=== PATIENT | female | born 1950 | race Caucasian/White ===

== ENCOUNTER 2017-05-15 12:30 | Outpatient (CLI) | payer BC | END 2017-05-15 12:31 | disposition home or self-care (01) | LOC: BICRAD 12:30 | PROVIDERS: ATTEND Family Medicine | DX: R68.89 Other general symptoms and signs (principal); J84.9 Interstitial pulmonary disease, unspecified; I70.0 Atherosclerosis of aorta | CPT/HCPCS: 71046 ==

== ENCOUNTER 2018-01-02 10:05 | Outpatient (CLI) | payer MEDICARE, BC | END 2018-01-02 10:06 | disposition home or self-care (01) | LOC: BICMAMMO 10:05 | PROVIDERS: ATTEND Family Medicine | DX: Z12.31 Encounter for screening mammogram for malignant neoplasm of breast (principal); Z85.828 Personal history of other malignant neoplasm of skin; Z80.3 Family history of malignant neoplasm of breast | CPT/HCPCS: 77063; 77067 ==

== ENCOUNTER 2018-08-10 08:52 | Outpatient (CLI) | payer BC, MEDICARE ==
--- NOTE | 2018-08-10 09:51 | CT ---
FCT thorax noncontrast: (Pulmonary low dose screening scan) 08/10/2018 HISTORY: 68-year-old female with 51 years of smoking. FINDINGS: Located near the anterior pleural surface, there is a left upper lobe noncalcified stellate nodule. B ecause of the very irregular shape, it is difficult to obtain precise measurements. It is approximate ly 6 x 3 x 4 mm. It is visualized on the 1.25 mm thin slice sequence. It is more difficult to visuali ze on the 5 mm axial images, and therefore it is uncertain whether it was present or not on the prior CT of 03/23/2010. (Current images 59 of 251, series 2; 133 of 199, series 602; 52 of 139, series 601 ). This could be a tiny pulmonary scar or primary neoplasm. No other suspicious pulmonary nodules. No mediastinal lymphadenopathy. No infiltrate, pleural effusion, or pneumothorax. No thoracic aortic an eurysm or cardiomegaly. There is a right adrenal nodule, and a smaller left adrenal nodule, which hav e been stable since 2009, consistent with benign adrenal adenomas. IMPRESSION: 1.) Lung RADS category 3 (probably benign, 1-2% chance of malignancy) 2) tiny stellate left upper lobe pulmonary nodule. 3) recommend 6 month follow-up low dose screening CT. 4) incidental finding of bilateral benign adrenal adenomas.
== END 2018-08-10 08:53 | disposition home or self-care (01) ==
LOC: CT 08:52
PROVIDERS: ATTEND Family Medicine
DX: F17.210 Nicotine dependence, cigarettes, uncomplicated (principal); R91.1 Solitary pulmonary nodule
CPT/HCPCS: G0297

== ENCOUNTER 2018-12-18 10:19 | Outpatient (CLI) | payer BC, MEDICARE ==
--- NOTE | 2018-12-22 06:47 | MMO ---
Bilateral MAMMO Bilat Screen [facility]. CLINICAL HISTORY: Patient is 68 years old and is seen for screening. The patient has the following family history of breast cancer: maternal aunt, malignant (generic), x2. The patient has a history of Skin cancer at age 53. VIEWS: The views performed were: bilateral craniocaudal with tomosynthesis and bilateral mediolateral oblique with tomosynthesis. FILMS COMPARED: The present examination has been compared to prior imaging studies performed at [facility] on 01/19/2015, 12/15/2015, 01/27/2017 and 01/02/2018. MAMMOGRAM FINDINGS: There are scattered fibroglandular densities. There is a stable focal asymmetry seen in the outer region of the left breast. There are no suspicious masses, suspicious calcifications, or new areas of architectural distortion. IMPRESSION: THERE IS NO MAMMOGRAPHIC EVIDENCE OF MALIGNANCY. A ROUTINE FOLLOW-UP MAMMOGRAM IN 1 YEAR IS RECOMMENDED. THE RESULTS OF THIS EXAM WERE SENT TO THE PATIENT. ACR BI-RADS Category 2 - Benign finding MAMMOGRAPHY NOTE: 1. A negative mammogram report should not delay a biopsy if a dominant of clinically suspicious mass is present. 2. Approximately 10% to 15% of breast cancers are not detected by mammography. 3. Adenosis and dense breasts may obscure an underlying neoplasm. Reported by: ERNESTO TOM MD Electonically Signed: [id number]
== END 2018-12-18 10:20 | disposition home or self-care (01) ==
LOC: BICMAMMO 10:19
PROVIDERS: ATTEND Family Medicine
DX: Z12.31 Encounter for screening mammogram for malignant neoplasm of breast (principal); Z80.3 Family history of malignant neoplasm of breast; Z85.828 Personal history of other malignant neoplasm of skin
CPT/HCPCS: 77063; 77067

== ENCOUNTER 2019-02-09 13:53 | Outpatient (CLI) | payer BC, MEDICARE ==
[~2019-02-09 13:53] MED LIST: ISOVUE-370 76%-LOCM 1 ML ONE
--- NOTE | 2019-02-09 15:23 | CT ---
CT CHEST WITH CONTRAST CLINICAL INDICATION: Pulmonary nodule. Follow-up evaluation. COMPARISON: 08/10/2018 FINDINGS: Aorta: Vascular calcifications are seen. Thoracic aorta is normal in caliber without evidence of an a ortic dissection. Coronary artery calcifications are also seen. Lungs: Previously noted curvilinear and slight nodular density within the anterior aspect left upper lobe (image 15, series 3) is again seen and unchanged from prior exam. No additional discrete pulmonary nodule or mass is seen. No pleural effusion is identified. Mediastinum: There is no evidence of lymphadenopathy. Thyroid gland: Artifact through this region, but no gross abnormality is seen. Osseous structures: Degenerative changes are seen in the spine. There are postsurgical changes involv ing the lower cervical spine Chest wall: No abnormality visualized. Upper abdomen: There are bilateral adrenal nodules which are stable in appearance and size compared t o prior study on 03/23/2010, and these nodules demonstrated attenuation coefficients on recent CT pulmonary lung scan on 08/10/2018 suggestive of adrenal adenomas. IMPRESSION: 1. Curvilinear slightly stellate appearing nodular density in the anterior aspect left upper lobe is stable when compared to prior exam. As cryptogenic represent focal area of scarring, but continued 6 month follow-up evaluation is recommended. No additional pulmonary nodule is seen.
== END 2019-02-09 13:54 | disposition home or self-care (01) ==
LOC: BICCT 13:53
PROVIDERS: ATTEND Family Medicine
DX: R91.1 Solitary pulmonary nodule (principal); Z87.891 Personal history of nicotine dependence
CPT/HCPCS: 71260; 82565; Q9966

== ENCOUNTER 2019-05-28 13:33 | Outpatient (CLI) | payer BC, MEDICARE ==
--- NOTE | 2019-05-28 15:00 | ULT ---
ULTRASOUND RENAL BILATERAL STANDARD: Date: 05/28/2019 HISTORY: Chronic kidney disease, Stage III. COMPARISON: None. FINDINGS: Real-time Hammer scale and color evaluation of the kidneys and urinary bladder performed. Right kidney measures 9.9 x 5.1 x 5.4 cm. Left kidney measures 9.3 x 5.3 x 6.7 cm. Urinary bladder vo lume is unremarkable. No renal mass, hydronephrosis, or abnormal calcifications are appreciated. IMPRESSION: Normal exam. POS: OFF
== END 2019-05-28 13:34 | disposition home or self-care (01) ==
LOC: BICULT 13:33
PROVIDERS: ATTEND Internal Medicine Nephrology
DX: N18.3 Chronic kidney disease, stage 3 (moderate) (principal)
CPT/HCPCS: 76770

== ENCOUNTER 2020-09-13 05:28 | Inpatient (IN) | payer MEDICARE, BC ==
[2020-09-13] MEDS ORDERED: Nitroglycerin 0.4 MG TAB 1 EACH ONE (05:36)
[2020-09-13 05:53] LABS: #Basophils 0.1 thou/uL (0.0-0.2); #Eosinphils 0.6 thou/uL (0.0-0.7); #Lymphocytes 3.1 thou/uL (1.20-3.40); #Monocytes 0.6 thou/uL (0.11-0.59); #Neutrophils 6.2 thou/uL (1.40-6.50); %Basophils 0.8 % (0.0-1.0); %Eosinophils 5.2 % (0.0-10.0); %Lymphocytes 29.1 % (21.0-51.0); %Monocytes 5.9 % (0.0-10.0); Hemoglobin 13.3 g/dL (12.0-16.0); Mean Corpuscular HGB CONC 32.2 g/dL (32.0-36.0); Mean Corpuscular Hemoglobin 29.6 pg (27.0-31.0); Mean Corpuscular Volume 91.9 fL (78.0-98.0); Mean Platelet Volume 7.6 fL (7.4-10.4); Platelet Count 348 thou/uL (130-400); RBC Distribution Width 12.5 % (11.5-14.5); Red Blood Cell (RBC) Count 4.48 mill/uL (4.20-5.40); White Blood Cell (WBC) Count 10.6 thou/uL (4.8-10.8)
[2020-09-13 06:26] LABS: ALT (SGPT) 21 U/L (8-55); AST (SGOT) 20 U/L (5-34); Albumin 4.2 g/dL (3.4-4.8); Alkaline Phosphatase 62 U/L (40-110); Anion Gap 15 mmol/L (10-20); BUN (Urea Nitrogen) 18 mg/dL (9.8-20.1); Bilirubin, Total 0.7 mg/dL (0.2-1.2); Calc. Creatinine Clearance 0 mL/min (70-130); Calcium 9.8 mg/dL (7.8-10.44); Carbon Dioxide 22 mmol/L (23-31); Chloride 105 mmol/L (98-107); Globulin 3.5 g/dL (2.4-3.5); Glucose 159 mg/dL (80-115); Potassium 3.9 mmol/L (3.5-5.1); Protein, Total 7.7 g/dL (5.8-8.1); Sodium 138 mmol/L (136-145)
[2020-09-13 07:09] LABS: SARS-CoV-2 NAA Rapid Test Not Detected (NotDetected)
[2020-09-13 07:19] LABS: CKMB 1.5 ng/mL (0-6.6)
[2020-09-13] MEDS ORDERED: Furosemide 40 MG/4 ML VIAL ONE (07:21)
[2020-09-13] MEDS ORDERED: Senokot S 8.6-50 MG TAB PO PRN (08:56)
[2020-09-13] MEDS ORDERED: HYDROcodone/Acetaminophen 5/325 mg Tablet PO PRN (08:56)
[2020-09-13] MEDS ORDERED: Calcium Carbonate 500 MG ChewTAB PO PRN (08:56)
[2020-09-13] MEDS ORDERED: Acetaminophen 325 MG TAB PO PRN (08:56)
[2020-09-13 08:57] LABS: Troponin I 0.155 ng/mL (< 0.028)
[2020-09-13] MEDS ORDERED: Enoxaparin Sodium 80 MG/0.8 ML SYRINGE SC SCH (09:00)
[2020-09-13] MEDS ORDERED: Dextrose 5% in Water 1,000 ML IV PRN (09:01)
[2020-09-13] MEDS ORDERED: HumaLOG 300 UNITS/3 ML VIAL SC PRN (09:01)
[2020-09-13] MEDS ORDERED: hydrALAZINE 20 MG/ML VIAL SLOW IVP PRN (09:01)
[2020-09-13] MEDS ORDERED: Dextrose 50% Abboject 50 ML SYRINGE SLOW IVP PRN (09:01)
[2020-09-13] MEDS ORDERED: Iopamidol 370 76% 100 ML VIAL ONE (10:09)
[2020-09-13 11:13] VITALS: BMI 28.9
[2020-09-13] MEDS: Aspirin Chewable 81 MG TAB PO SCH (11:59)
[2020-09-13] MEDS: Famotidine 20 MG TAB PO SCH ×2 (11:59→20:51)
[2020-09-13] MEDS: Nicotine 14 MG PATCH TD SCH (12:00)
[2020-09-13 12:51] LABS: Troponin I 0.164 ng/mL (< 0.028)
[2020-09-13] MEDS ORDERED: Furosemide 20 MG/2 ML VIAL SLOW IVP SCH (17:00)
[2020-09-13] MEDS ORDERED: Carvedilol 6.25 MG TAB PO SCH (17:00)
[2020-09-13] MEDS ORDERED: Potassium Chloride 20 MEQ TAB PO SCH (17:00)
[2020-09-13] MEDS: Carvedilol 3.125 MG TAB PO SCH (17:54)
[2020-09-13] MEDS: Enoxaparin Sodium 40 MG/0.4 ML SYRINGE SC SCH (20:51)
[2020-09-13] MEDS: Doxycycline 100 MG CAP PO SCH (20:51)
[2020-09-14 05:05] LABS: #Basophils 0.1 thou/uL (0.0-0.2); #Eosinphils 0.4 thou/uL (0.0-0.7); #Lymphocytes 2.8 thou/uL (1.20-3.40); #Monocytes 0.7 thou/uL (0.11-0.59); #Neutrophils 3.1 thou/uL (1.40-6.50); %Eosinophils 5.8 % (0.0-10.0); %Monocytes 9.3 % (0.0-10.0); %Neutrophils 43.9 % (42.0-75.0); Hemoglobin 12.5 g/dL (12.0-16.0); Mean Corpuscular HGB CONC 31.6 g/dL (32.0-36.0); Mean Corpuscular Hemoglobin 29.7 pg (27.0-31.0); Mean Platelet Volume 7.9 fL (7.4-10.4); Platelet Count 323 thou/uL (130-400); RBC Distribution Width 12.6 % (11.5-14.5); Red Blood Cell (RBC) Count 4.21 mill/uL (4.20-5.40); White Blood Cell (WBC) Count 7.1 thou/uL (4.8-10.8)
[2020-09-14 05:10] LABS: Hemoglobin A1c 6.2 % (4.0-6.0)
[2020-09-14 05:13] LABS: Phosphorus 3.6 mg/dL (2.3-4.7)
[2020-09-14 05:16] LABS: Anion Gap 16 mmol/L (10-20); BUN (Urea Nitrogen) 17 mg/dL (9.8-20.1); Calc. Creatinine Clearance 53 mL/min (70-130); Calcium 9.6 mg/dL (7.8-10.44); Carbon Dioxide 24 mmol/L (23-31); Cardiac Risk 3.4 (Less than 4.5); Chloride 104 mmol/L (98-107); Cholesterol 137 mg/dl (< 200 Desired); Glucose 115 mg/dL (80-115); HDL Cholesterol 40 mg/dL (>60 Neg Risk); LDL Cholesterol, Calculated 59 mg/dL; Potassium 4.5 mmol/L (3.5-5.1); Sodium 139 mmol/L (136-145); Triglycerides 188 mg/dL (Less than 150)
[2020-09-14 05:27] LABS: CRP (Inflammatory) Less than 0.50 mg/dL (= or < 0.5); Magnesium 1.5 mg/dL (1.6-2.6)
[2020-09-14] MEDS: Enoxaparin Sodium 40 MG/0.4 ML SYRINGE SC SCH ×2 (08:12→20:44)
[2020-09-14] MEDS: Aspirin Chewable 81 MG TAB PO SCH (08:13)
[2020-09-14] MEDS: Famotidine 20 MG TAB PO SCH ×2 (08:13→20:44)
[2020-09-14] MEDS: Doxycycline 100 MG CAP PO SCH (08:13)
[2020-09-14] MEDS: Carvedilol 3.125 MG TAB PO SCH ×2 (08:13→17:47)
[2020-09-14] MEDS ORDERED: Magnesium Sulfate 4 GM in Sodium Chloride 0.9% 250 ML 250 ML IVPB SCH (08:15)
[2020-09-14] MEDS: Nicotine 14 MG PATCH TD SCH (08:27)
[2020-09-14] MEDS ORDERED: Furosemide 20 MG/2 ML VIAL SLOW IVP SCH (09:00)
[2020-09-14] MEDS ORDERED: Communication Order-Pharmacy FS SCH (09:00)
[2020-09-15] MEDS: Aspirin Chewable 81 MG TAB PO SCH (05:30)
[2020-09-15] MEDS: Famotidine 20 MG TAB PO SCH (05:30)
[2020-09-15] MEDS: Carvedilol 3.125 MG TAB PO SCH (05:31)
[2020-09-15] MEDS: Nicotine 14 MG PATCH TD SCH (05:31)
[2020-09-15 05:33] LABS: Anion Gap 12 mmol/L (10-20); BUN (Urea Nitrogen) 23 mg/dL (9.8-20.1); Calc. Creatinine Clearance 45 mL/min (70-130); Calcium 9.8 mg/dL (7.8-10.44); Carbon Dioxide 27 mmol/L (23-31); Chloride 103 mmol/L (98-107); Glucose 114 mg/dL (80-115); Magnesium 2.2 mg/dL (1.6-2.6); Potassium 4.5 mmol/L (3.5-5.1); Sodium 137 mmol/L (136-145)
[2020-09-15] MEDS ORDERED: Sodium Chloride 0.9% 1,000 ML IV SCH (06:00)
[2020-09-15] MEDS ORDERED: Lidocaine 1% (PF) 30 ML VIAL ONE (07:50)
[2020-09-15] MEDS ORDERED: Midazolam HCl 2 mg/2 ml Vial ONE (08:24)
[2020-09-15] MEDS ORDERED: Fentanyl 100 MCG/2 ML VIAL ONE (08:24)
[2020-09-15] MEDS ORDERED: Nitroglycerin 0.4 MG TAB (25 Tab Bottle) SL PRN (08:58)
[2020-09-15] MEDS ORDERED: Sodium Chloride 0.9% 200 ML IV PRN (08:58)
[2020-09-15] MEDS ORDERED: Iopamidol 370 76% 100 ML VIAL ONE (10:52)
[2020-09-15 11:38] VITALS: TEMP 97.8
[2020-09-15 12:30] VITALS: BP 110/73
[2020-09-15] MEDS ORDERED: Rosuvastatin 10 MG TAB PO SCH (21:00)
[2020-09-17] MEDS ORDERED: Furosemide 20 MG TAB PO SCH (09:00)
== END 2020-09-15 16:25 | disposition home or self-care (01) | DRG 280 ==
LOC: ERS 05:28 → 2SW 07:40 → OBSVTOIN 09-14 09:43
PROVIDERS: ADMIT Family Medicine; ATTEND Internal Medicine
PROC: 4A023N7 Measurement of Cardiac Sampling and Pressure, Left Heart, Percutaneous Approach (ICD-10-PCS; principal; 2020-09-15)
PROC: B2111ZZ Fluoroscopy of Multiple Coronary Arteries using Low Osmolar Contrast (ICD-10-PCS; 2020-09-15)
PROC: B2151ZZ Fluoroscopy of Left Heart using Low Osmolar Contrast (ICD-10-PCS; 2020-09-15)
DX: I13.0 Hypertensive heart and chronic kidney disease with heart failure and stage 1 through stage 4 chronic kidney disease, or unspecified chronic kidney disease (principal); I21.A1 Myocardial infarction type 2; J96.01 Acute respiratory failure with hypoxia; I50.23 Acute on chronic systolic (congestive) heart failure; Z20.822 Contact with and (suspected) exposure to COVID-19; I42.0 Dilated cardiomyopathy; E78.5 Hyperlipidemia, unspecified; E03.9 Hypothyroidism, unspecified; F17.210 Nicotine dependence, cigarettes, uncomplicated; F17.290 Nicotine dependence, other tobacco product, uncomplicated; E78.00 Pure hypercholesterolemia, unspecified; I25.10 Atherosclerotic heart disease of native coronary artery without angina pectoris; G47.33 Obstructive sleep apnea (adult) (pediatric); E11.22 Type 2 diabetes mellitus with diabetic chronic kidney disease; N18.30 Chronic kidney disease, stage 3 unspecified; I34.0 Nonrheumatic mitral (valve) insufficiency; E83.42 Hypomagnesemia; E87.5 Hyperkalemia; Z88.5 Allergy status to narcotic agent; Z79.82 Long term (current) use of aspirin; Z79.899 Other long term (current) drug therapy; Z90.710 Acquired absence of both cervix and uterus; Z90.49 Acquired absence of other specified parts of digestive tract; Z79.890 Hormone replacement therapy; Z79.84 Long term (current) use of oral hypoglycemic drugs
CPT/HCPCS: 36415; 36416; 71045; 71275; 76942; 80048; 80053; 80061; 82553; 83036; 83735; 83880; 84100; 84145; 84484; 85025; 85652; 86140; 93005; 93306; 93458; 93798; 94760; 96372; 96374; 96376; 99152; G0378; J1650; J1940; J2001; J2250; J3010; J3475; J7050; Q9967; U0002

== ENCOUNTER 2020-12-21 | Outpatient (CLI) | payer MEDICARE, BC | END 2020-12-21 09:02 | disposition home or self-care (01) | DX: Z12.31 Encounter for screening mammogram for malignant neoplasm of breast (principal); Z80.3 Family history of malignant neoplasm of breast; Z85.828 Personal history of other malignant neoplasm of skin | CPT/HCPCS: 77063; 77067 ==

== ENCOUNTER 2021-12-24 08:32 | Outpatient (CLI) | payer MEDICARE, BC | END 2021-12-24 08:33 | disposition home or self-care (01) | LOC: BICMAMMO 08:32 | PROVIDERS: ATTEND Family Medicine | DX: Z12.31 Encounter for screening mammogram for malignant neoplasm of breast (principal); Z80.3 Family history of malignant neoplasm of breast; Z85.828 Personal history of other malignant neoplasm of skin | CPT/HCPCS: 77063; 77067 ==

== ENCOUNTER 2022-11-12 06:35 | Day surgery (SDC) | payer MEDICARE, BC ==
[2022-11-08 15:29] VITALS: BMI 25.5
[2022-11-12] MEDS ORDERED: Cyclopentolate 1% Opth Drop 2 ML BOT ONE (07:05)
[2022-11-12] MEDS ORDERED: PHENYLephrine 2.5% Ophth Soln 15 ml Bottle ONE (07:05)
[2022-11-12] MEDS ORDERED: Midazolam HCl 2 mg/2 ml Vial ONE (07:54)
[2022-11-12] MEDS ORDERED: fentaNYL 50 mcg/mL 1 mL Vial ONE (07:54)
[2022-11-12] MEDS ORDERED: EPINEPHrine 0.3 MG in Ophthalmic Irrigation Solution 500 ML IRR SCH (08:00)
[2022-11-12] MEDS ORDERED: Maxitrol 0.1% Opth Oint 3.5 GM TUBE ONE (08:05)
[2022-11-12] MEDS ORDERED: Triamcinolone 40 MG/ML VIAL ONE (08:05)
[2022-11-12] MEDS ORDERED: Lidocaine 4% PF 5 ML AMP ONE (08:05)
[2022-11-12] MEDS ORDERED: Bupivacaine 0.75% 10 ML VIAL ONE (08:05)
[2022-11-12] MEDS ORDERED: PROPOFOL 200 MG/20 ML VIAL ONE (08:05)
[2022-11-12] MEDS ORDERED: Lidocaine 1% PF 5 ML VIAL ONE (08:05)
[2022-11-12] MEDS ORDERED: CEFAZOLIN 1 GM VIAL ONE (08:05)
[2022-11-12] MEDS ORDERED: Glycopyrrolate 0.2 MG/ML 5 ML SYRINGE ONE (08:05)
== END 2022-11-12 09:05 | disposition home or self-care (01) ==
LOC: SDC 06:35
PROVIDERS: ATTEND Ophthalmology Retina Specialist
PROC: 08T53ZZ Resection of Left Vitreous, Percutaneous Approach (ICD-10-PCS; principal; 2022-11-12)
DX: H43.392 Other vitreous opacities, left eye (principal); Z88.8 Allergy status to other drugs, medicaments and biological substances
CPT/HCPCS: 67036; J3010; J0171; J0690; J2250; J2704; J3301; J3490

== ENCOUNTER 2023-01-14 09:31 | Outpatient (CLI) | payer MEDICARE, BC | END 2023-01-14 09:32 | disposition home or self-care (01) | LOC: BICMAMMO 09:31 | PROVIDERS: ATTEND Family Medicine | DX: Z12.31 Encounter for screening mammogram for malignant neoplasm of breast (principal); Z80.3 Family history of malignant neoplasm of breast; Z85.828 Personal history of other malignant neoplasm of skin | CPT/HCPCS: 77063; 77067 ==

== ENCOUNTER 2023-02-07 12:49 | Outpatient (CLI) | payer MEDICARE, BC | END 2023-02-07 12:50 | disposition home or self-care (01) | LOC: BICCT 12:49 | PROVIDERS: ATTEND Family Medicine | DX: Z12.2 Encounter for screening for malignant neoplasm of respiratory organs (principal); Z87.891 Personal history of nicotine dependence; R91.8 Other nonspecific abnormal finding of lung field; E27.8 Other specified disorders of adrenal gland | CPT/HCPCS: 71271 ==

== ENCOUNTER 2023-03-20 05:57 | Day surgery (SDC) | payer MEDICARE, BC ==
[2023-03-19 10:06] VITALS: BMI 25.9
[2023-03-20] MEDS ORDERED: PROPOFOL 200 MG/20 ML VIAL ONE (07:51)
== END 2023-03-20 08:46 | disposition home or self-care (01) ==
LOC: SDC 05:57
PROVIDERS: ATTEND Internal Medicine
PROC: 0DB68ZX Excision of Stomach, Via Natural or Artificial Opening Endoscopic, Diagnostic (ICD-10-PCS; principal; 2023-03-20)
PROC: 0D758ZZ Dilation of Esophagus, Via Natural or Artificial Opening Endoscopic (ICD-10-PCS; 2023-03-20)
DX: K31.7 Polyp of stomach and duodenum (principal); K21.00 Gastro-esophageal reflux disease with esophagitis, without bleeding; F45.8 Other somatoform disorders; R05.3 Chronic cough; I10 Essential (primary) hypertension; E11.9 Type 2 diabetes mellitus without complications; E03.9 Hypothyroidism, unspecified; Z87.891 Personal history of nicotine dependence; Z90.710 Acquired absence of both cervix and uterus; Z79.84 Long term (current) use of oral hypoglycemic drugs; Z79.85 Long-term (current) use of injectable non-insulin antidiabetic drugs; Z79.899 Other long term (current) drug therapy; Z79.890 Hormone replacement therapy
CPT/HCPCS: 88305; J2704

== ENCOUNTER 2023-03-21 14:44 | Emergency (ER) | payer MEDICARE, BC ==
[2023-03-22 13:25] LABS: GC by PCR, EndoCx Swab Not Detected (NotDetected)
[2023-03-22 13:30] LABS: Chlamydia by PCR, EndoCx Swab Not Detected (NotDetected)
== END 2023-03-21 16:35 | disposition home or self-care (01) ==
LOC: ERS 14:44
DX: Z00.01 Encounter for general adult medical examination with abnormal findings (principal); I10 Essential (primary) hypertension; E11.9 Type 2 diabetes mellitus without complications; E03.9 Hypothyroidism, unspecified; K21.9 Gastro-esophageal reflux disease without esophagitis; Z87.891 Personal history of nicotine dependence
CPT/HCPCS: 87480; 87491; 87510; 87591; 87660; 87661; 99283

== ENCOUNTER 2023-04-04 14:25 | Outpatient (CLI) | payer MEDICARE, BC | END 2023-04-04 14:26 | disposition home or self-care (01) | LOC: BICMAMMO 14:25 | PROVIDERS: ATTEND Family Medicine | DX: Z13.820 Encounter for screening for osteoporosis (principal); E21.3 Hyperparathyroidism, unspecified; M85.852 Other specified disorders of bone density and structure, left thigh; M85.851 Other specified disorders of bone density and structure, right thigh | CPT/HCPCS: 77080 ==

== ENCOUNTER 2024-01-22 08:44 | Outpatient (CLI) | payer MEDICARE | END 2024-01-22 08:45 | disposition home or self-care (01) | LOC: BICMAMMO 08:44 | PROVIDERS: ATTEND Family Medicine | DX: Z12.31 Encounter for screening mammogram for malignant neoplasm of breast (principal); N64.89 Other specified disorders of breast; Z80.3 Family history of malignant neoplasm of breast; Z85.828 Personal history of other malignant neoplasm of skin | CPT/HCPCS: 77063; 77067 ==

== ENCOUNTER 2024-01-26 07:35 | Outpatient (CLI) | payer MEDICARE | END 2024-01-26 07:36 | disposition home or self-care (01) | LOC: BICMAMMO 07:35 | PROVIDERS: ATTEND Family Medicine | DX: N63.20 Unspecified lump in the left breast, unspecified quadrant (principal); R92.322 Mammographic fibroglandular density, left breast | CPT/HCPCS: 77065; G0279 ==

== ENCOUNTER → 2024-06-09 | Day surgery (SDC) | payer MEDICARE ==
[~2024-06-09] MED LIST changes: -ISOVUE-370 76%-LOCM 1 ML ONE; +Lidocaine 1% PF 5 ML VIAL ONE; +Sodium Bicarbonate 2.5 MEQ/5 ML SDV ONE
== END ==
LOC: ULT 12:40
PROVIDERS: ATTEND Family Medicine
PROC: 0G9H3ZX Drainage of Right Thyroid Gland Lobe, Percutaneous Approach, Diagnostic (ICD-10-PCS; principal; 2024-06-09)
DX: E04.1 Nontoxic single thyroid nodule (principal); I13.0 Hypertensive heart and chronic kidney disease with heart failure and stage 1 through stage 4 chronic kidney disease, or unspecified chronic kidney disease; I50.23 Acute on chronic systolic (congestive) heart failure; N18.30 Chronic kidney disease, stage 3 unspecified; E11.22 Type 2 diabetes mellitus with diabetic chronic kidney disease; E11.40 Type 2 diabetes mellitus with diabetic neuropathy, unspecified; E03.9 Hypothyroidism, unspecified; G47.33 Obstructive sleep apnea (adult) (pediatric); Z87.891 Personal history of nicotine dependence; Z79.890 Hormone replacement therapy; Z79.1 Long term (current) use of non-steroidal anti-inflammatories (NSAID); Z79.84 Long term (current) use of oral hypoglycemic drugs; Z79.51 Long term (current) use of inhaled steroids; Z79.899 Other long term (current) drug therapy
CPT/HCPCS: 10005; 88173; 88305

== ENCOUNTER 2025-01-17 06:17 | Day surgery (SDC) | payer MEDICARE ==
[2025-01-14 09:17] VITALS: BMI 26.1
[2025-01-17] MEDS ORDERED: PROPOFOL 20 ML ONE (07:13)
[2025-01-17] MEDS ORDERED: Lidocaine 1% PF 5 ML VIAL ONE (07:15)
== END 2025-01-17 09:15 | disposition home or self-care (01) ==
LOC: SDC 06:17
PROVIDERS: ATTEND Internal Medicine
PROC: 0DB28ZX Excision of Middle Esophagus, Via Natural or Artificial Opening Endoscopic, Diagnostic (ICD-10-PCS; principal; 2025-01-17)
PROC: 0D728ZZ Dilation of Middle Esophagus, Via Natural or Artificial Opening Endoscopic (ICD-10-PCS; 2025-01-17)
DX: K20.0 Eosinophilic esophagitis (principal); E07.9 Disorder of thyroid, unspecified; E11.22 Type 2 diabetes mellitus with diabetic chronic kidney disease; N18.2 Chronic kidney disease, stage 2 (mild); Z87.891 Personal history of nicotine dependence; Z96.651 Presence of right artificial knee joint; Z95.810 Presence of automatic (implantable) cardiac defibrillator; Z98.51 Tubal ligation status; Z98.49 Cataract extraction status, unspecified eye; Z90.710 Acquired absence of both cervix and uterus; Z90.49 Acquired absence of other specified parts of digestive tract; Z90.89 Acquired absence of other organs; Z88.6 Allergy status to analgesic agent; Z88.5 Allergy status to narcotic agent; Z79.84 Long term (current) use of oral hypoglycemic drugs; Z79.85 Long-term (current) use of injectable non-insulin antidiabetic drugs; Z79.899 Other long term (current) drug therapy
CPT/HCPCS: 43239; 43248; J2704; 88305

== ENCOUNTER 2025-01-26 08:48 | Outpatient (CLI) | payer MEDICARE | END 2025-01-26 08:49 | disposition home or self-care (01) | LOC: BICMAMMO 08:48 | PROVIDERS: ATTEND Family Medicine | DX: Z12.31 Encounter for screening mammogram for malignant neoplasm of breast (principal); Z80.3 Family history of malignant neoplasm of breast; Z85.828 Personal history of other malignant neoplasm of skin | CPT/HCPCS: 77063; 77067 ==